=== PATIENT | female | born 1965 | race Hispanic/Latino ===

== ENCOUNTER → 2022-09-25 | Day surgery (SDC) | payer BC ==
[~2022-09-25] MED LIST: EPHEDRINE SULFATE INJ 50 MG/ML VIAL ONE; GLIPIZIDE ER5 MG PO; JANUMET XR 50-1 EAC1 PO; JARDIANCE25 MG PO; LACTATED RINGER'S 1,000 ML ONE; LEVOTHYROXINE75 MCG PO; LIDOCAINE HCL 2% LOCAL INJ 5 ML SDV VIAL INJ ONE; LIPITOR10 MG PO; MIDAZOLAM HCL 2 MG/2 ML VIAL ONE; PROPOFOL IV EMULSION 10 MG/ML 20 ML VIAL ONE; VASOTEC5 MG PO
[2022-09-25 15:45] VITALS: TEMP 98.2
[2022-09-25 16:30] VITALS: BP 114/67; PULSE 85; RESP 17; O2SAT 96
== END | disposition home or self-care (01) ==
LOC: OR 10:38
PROVIDERS: ATTEND Internal Medicine Gastroenterology
DX: Z12.11 Encounter for screening for malignant neoplasm of colon (principal); D12.4 Benign neoplasm of descending colon; K57.30 Diverticulosis of large intestine without perforation or abscess without bleeding; D64.9 Anemia, unspecified; I10 Essential (primary) hypertension; E78.5 Hyperlipidemia, unspecified; E03.9 Hypothyroidism, unspecified; E11.9 Type 2 diabetes mellitus without complications; Z01.810 Encounter for preprocedural cardiovascular examination; Z79.84 Long term (current) use of oral hypoglycemic drugs; Z79.899 Other long term (current) drug therapy; Z79.1 Long term (current) use of non-steroidal anti-inflammatories (NSAID)
CPT/HCPCS: 36415; 45380; 82550; 82948; 84484; 93005 ×2; J2001; J2250; J2704; J7121; 45378; 45384